=== PATIENT | female | born 2000 | race Caucasian/White ===

== ENCOUNTER 2018-09-29 05:43 | Emergency (ER) | payer MEDICAID, SELFPAY ==
[2018-09-29 05:52] VITALS: BP 182/116; PULSE 127; RESP 22; TEMP 36.8; O2SAT 97; BMI 45.1
--- NOTE | 2018-09-29 05:55 | EKG12_ITS ---
Test Reason : MHC Blood Pressure : / mmHG Vent. Rate : 107 BPM Atrial Rate : 107 BPM P-R Int : 164 ms QRS Dur : 098 ms QT Int : 336 ms P-R-T Axes : 038 057 009 degrees QTc Int : 448 ms Sinus tachycardia Otherwise normal ECG Confirmed by JENNIFER PRADO ([id number]), telegraph editor NELL NEWELL ([id number]) on 10/01/2018 8:42:22 AM Referred By: DANITZA Confirmed By:JENNIFER PRADO
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
[2018-09-29 06:03] LABS: Absolute Lymphocyte Count 3.06 X10^3/ul (0.83-4.51); Absolute Neutrophil Count 9.6 X10^3/uL (2.0-7.7); Basophil# 0.03 X10^3/uL; Basophil% 0.2 % (0-1); Eosinophil# 0.14 X10^3/uL; Hematocrit 43.8 % (37-47); Hemoglobin 14.6 g/dl (12.0-15.0); Lymphocyte # 3.06 X10^3/ul (4.0); Lymphocyte % 22.4 % (19-41); Mean Corp Hgb Conc 33.3 g/gl (32-36); Mean Corpuscular Hgb 27.3 pg (27.0-32.0); Mean Corpuscular Volume 81.9 fL (81-99); Mean Platelet Vol. 10.5 fl (6.2-12.0); Monocyte# 0.81 X10^3/uL; Monocyte% 5.9 % (0-10); Neutrophil % 70.2 % (47-70); Platelet Count 333 K/mm3 (150-450); RBC Distribution Width CV 13.6 % (11.6-14.6); RBC Distribution Width SD 40.8 fl (35.1-43.9); Red Blood Count 5.35 M/mm3 (4.2-5.4); White Blood Count 13.7 K/mm3 (4.4-11.0)
[2018-09-29 06:04] LABS: POSITIVE COUNT NO; POSITIVE DIFFERENTIAL NO; POSITIVE MORPHOLOGY NO
[2018-09-29 06:26] LABS: Anion Gap 12 (5-15); BUN 10 mg/dL (7-18); BUN/Creat Ratio 10.7 RATIO (10-20); Calcium,Total 9.1 mg/dL (8.5-10.1); Chloride 101 mmol/L (98-107); Creatinine, Serum 0.93 mg/dL (0.55-1.02); EST Glomerular Filtration Rate 81 mL/min (>60); Est Glom Filt Rate - Afr Amer 98 mL/min (>60); Estimated Creatinine Clearance 90.33 ml/min; Glucose 312 mg/dL (74-106); Potassium 3.7 mmol/L (3.5-5.1); Sodium Level 138 mmol/L (136-145)
[2018-09-29 06:27] LABS: Internal QC Validated? YES +Cl - CLEAR BKGD; Pregnancy, Serum, hCG Quali. NEGATIVE Negative
[2018-09-29 06:35] LABS: Alcohol, Blood (Medical)-Serum < 3.0 mg/dL
--- NOTE | 2018-09-29 06:43 | ED.RN ---
2nd cup of water given to pt. Reviewed POC with pt.
[2018-09-29 07:22] LABS: Amphetamine Urine VISTA NEGATIVE (<1000 ng/mL); Barbiturate Urine VISTA NEGATIVE (< 200 ng/mL); Benzodiazepine Urine VISTA NEGATIVE (< 200 ng/mL); Cocaine Urine VISTA NEGATIVE (< 300 ng/mL); Ecstacy Urine VISTA NEGATIVE (< 500 ng/mL); Methadone Urine VISTA NEGATIVE (< 300 ng/mL); PCP Urine VISTA NEGATIVE (< 25 ng/mL); THC Urine VISTA NEGATIVE (< 50 ng/mL); Vista UDS pH Range 5
--- NOTE | 2018-09-29 08:19 | NURSING ---
CALLED CRISIS AT [id number]
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
--- NOTE | 2018-09-29 10:35 | ED.DEP ---
ED Disposition - Plan for ED Patient: Instructions: ED Depression Referrals: [facility],Out of [NON-STAFF] - 3-5 Days
[2018-09-29 10:52] VITALS: BP 132/74; PULSE 74; RESP 16; O2SAT 100
== END 2018-09-29 10:52 | disposition home or self-care (01) ==
PROVIDERS: Emergency Provider Emergency Medicine
DX: R45.851 Suicidal ideations (principal); S80.812A Abrasion, left lower leg, initial encounter; W50.1XXA Accidental kick by another person, initial encounter; Y93.9 Activity, unspecified; Y92.9 Unspecified place or not applicable; Y99.9 Unspecified external cause status; R07.9 Chest pain, unspecified; R00.0 Tachycardia, unspecified; E11.9 Type 2 diabetes mellitus without complications; I10 Essential (primary) hypertension; E66.9 Obesity, unspecified; Z72.0 Tobacco use; Z79.4 Long term (current) use of insulin; Z79.899 Other long term (current) drug therapy
CPT/HCPCS: 36415; 80048; 80307; 80320; 84703; 85025; 93005; 99283; G0480

== ENCOUNTER 2018-09-30 17:30 | Emergency (ER) | payer MEDICAID, SELFPAY ==
[2018-09-29 05:52] VITALS: BMI 45.1
[2018-09-30 17:31] VITALS: BP 195/93; PULSE 105; RESP 16; TEMP 36.3; O2SAT 97; BMI 47.1
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
[2018-09-30] MEDS: Acetaminophen 500 MG Tablet 1000 MG PO (18:32)
== END 2018-09-30 18:34 | disposition home or self-care (01) ==
PROVIDERS: Emergency Provider Emergency Medicine
DX: S13.9XXA Sprain of joints and ligaments of unspecified parts of neck, initial encounter (principal); Y04.2XXA Assault by strike against or bumped into by another person, initial encounter; Y93.9 Activity, unspecified; Y92.9 Unspecified place or not applicable; Y99.9 Unspecified external cause status; R11.2 Nausea with vomiting, unspecified; E11.9 Type 2 diabetes mellitus without complications; F17.200 Nicotine dependence, unspecified, uncomplicated; Z88.0 Allergy status to penicillin; Z88.8 Allergy status to other drugs, medicaments and biological substances; Z79.4 Long term (current) use of insulin; Z79.899 Other long term (current) drug therapy
CPT/HCPCS: 99283